=== PATIENT | female | born 1995 ===

== ENCOUNTER 2024-07-31 13:28 | Outpatient (AMB) | payer OTHER, SELFPAY ==
[2024-07-31 13:39] VITALS: BP 106/69; PULSE 96; RESP 18; TEMP 36.8; O2SAT 99; BMI 21.3
--- NOTE | 2024-07-31 13:39 | PD.RESCLINIC ---
Vital Signs 07/31/24 13:39 Height 1.68 m Height Method Stated Weight 59.874 kg Weight Measurement Method Standing Scale BMI 21.3 BP 106/69 Blood Pressure Source Automatic Cuff Blood Pressure Location Left Upper Arm Position Sitting Respiration 18 Pulse 96 Pulse Source Monitor Temp 98.2 F Temp Source Temporal Artery Scan Pulse Oximetry (%) 99 Oxygen Delivery Method Room Air Allergies/Meds Allergies & Medications Allergies No Known Allergies Allergy (Verified 07/31/24 13:40) Medication Reconciliation Lactobacillus acidophilus 10 billion cell capsule 10,000 mmu cells PO QDAY 1 month #30 caps 07/31/24 [Rx] clotrimazole 1 % topical cream 1 applic topical BID vaginal infection 2 weeks #30 grams 07/31/24 [Rx] ketoconazole 2 % shampoo 1 applic topical Q2D scalpo seborrhaeic dermatitis 1 month #120 mL 07/31/24 [Rx] pimecrolimus 1 % topical cream 1 applic topical BID Dermatitis 1 month #60 grams 08/05/24 [Rx] MA Intake Visit Data Collection New Patient or Established: New Patient (never been to [facility]) Seen by Clinical Staff ONLY (RN/MA): No Pain Present Currently: No Pain scale:: 0 Pain Scale Used: Watters-Vazquez/Numerical Green Chain Puller Required: No PCP or OBGYN visit in last 3 months: No Hx Now: No Do You Feel Safe at Home: Yes Authorities Contacted: N/A Smoking Status Smoking Status: Never smoker Immunization / Flu Flu Vaccine in the Last 12 Months: No Flu Vaccine Exclusion Criteria: No Exclusion Criteria Past Medical History Social History SMOKING STATUS: Smoking status: Never smoker Patient Portal Questionaires Social History Tobacco History Smoking Status: Never smoker Domestic Abuse History Do You Feel Safe at Home: Yes Review of Systems Report any current symptoms Only answer those that you have currently: Past Medical History Past Medical History Have you ever been diagnosed with any of the following: History of Present Illness HPI Narrative Patient is a 29 year old female with past medical history of seborrheic dermatitis since 2015. She was previously in [place] and was seen by wine steward/stewardess and prescribed topical steroids and ointments. She has otherwise remained in good health over the past 1 year until 2 weeks ago. 07/31/2024: 2 weeks ago, she started having exacerbation of her seborrheic dermatitis. Patient initially had itching and redness around her right ear, and subsequently on the left predominantly in the outer ear canal and earlobes. She also has scab-like lesions at multiple locations on her scalp between her hair, but started around the same time. She also has a burning and itvchy rash around her vaginal orifice and labia. She denies any pain, but endorses significant pruritus and erythema. She has been using topical Vaseline to help moisturize the dryness. Review of Systems Review of Systems Narrative Review of Systems: GENERAL: Denies fevers/chills, diaphoresis. HEENT: Denies headache or visual/hearing changes. Itching and redness around her right ear, and subsequently on the left predominantly in the outer ear canal and earlobes NEURO: Denies unusual weakness or difficulty speaking. CARDIO: Denies chest pain, palpitations. PULM: Denies SOB, cough, wheezing. GI: Denies abdominal pain, no N/V, no C/D. Reports having BMs URO: Denies burning/itching/pain/urinary changes. SULFUR CHLORIDE OPERATOR: Denies menstrual changes, hot flashes. MSK/EXT/SKIN: scab-like lesions at multiple locations on her scalp between her hair PSYCH: Cooperative, pleasant mood & affect. The rest of the review of systems is otherwise negative. Objective/Exam Narrative Physical exam: Constitutional Alert, oriented x3 and comfortable HEENT Vision grossly intact. Patent nares. Trachea midline. B/L ear dermatitis Respiratory Chest normal on inspection and clear to auscultation bilaterally. Cardiovascular S1 and S2 audible, RRR. No murmurs or carotid bruit. No gross JVD. Abdominal Soft and non tender to palpation in all quadrants. BS + Genitourinary Erythema and pruritic rash around vaginal orifice and labia majorqa R>L Musculoskeletal Extremities tone within normal limits. No LE edema. Neurological CN II - XII grossly intact. Extremity motor and sensation grossly intact. Skin B/L outer ear canala and lobes, scalp seborrhaeic dermatitis Psychiatric Patient has a good affect, is cooperative. Assessment & Plan Diagnosis / Problem List (1) Dermatitis seborrheica: Status: Acute Assessment & Plan: bilateral ear outer canal lesions, erythema and pruritis Plan: Pecrolimus ointment BID Solu-medrol pack x7 days (2) Seborrhea capitis: Status: Acute Assessment & Plan: scalp dandruff and seborrheic lesions Plan: Ketoconazole shampoo (3) Acute vulvovaginitis: Status: Acute Assessment & Plan: itching and burning rash around labia majora R>L Plan: clotrimazole TOP ointment Lactobacillus probiotic qD Plan Follow up in 2 weeks with PCP Nodulizer referral for Dr Muir at [facility] re: pap smear and vaginal exam Additional Assessment Internal Medicine Attending Note: Case discussed with and agree with note and management plan of Resident Physician as per Resident's Note above. Issues of concern for present visit are as follows: New patient to clinic. Past medical history of seborrheic dermatitis, over 8 years. Has used topical steroid and other topical ointment (not known what it is, prescribed another country). Examination today significant for exacerbation of seborrheic dermatitis and usual locations of scalp periauricular, earlobes. Also noting vulvovaginitis likely Maria Esther. For seborrheic dermatitis, will treat with ketoconazole and tacrolimus. We will give a short course of oral steroid to help with inflammation, but avoid topical steroids. Clotrimazole for vulvovaginitis. Onel Robledo MD Physician Billing New Patient New Patient: E/M Level 3-CPT 18491 Office Procedures [facility] Level of Care Nursing/Assessment Patient Status: Initial/New Patient Nursing Assessment/Reassessment: Medication Reconciliation, Update PMH in EMR and Vital Signs Coordination of Care: Complex Care and Chronic Disease 1-5, Consent,records obtained, informed consent, Education Simp Pt/Fam and Staff clarify orders New Patient Charge New Patient Point Assignment: [id number] New Patient Point Charge: CATALOGING ASSISTANT Level 3 ([id number])
== END 2024-07-31 14:28 | disposition home or self-care (01) ==
LOC: HODAHC 13:28
PROVIDERS: Supervising Provider Internal Medicine; Visit Provider Student in an Organized Health Care Education/Training Program
DX: L21.9 Seborrheic dermatitis, unspecified (principal); L21.0 Seborrhea capitis; N76.0 Acute vaginitis
CPT/HCPCS: 99203; G0463

== ENCOUNTER 2024-08-14 14:59 | Outpatient (AMB) | payer OTHER, SELFPAY ==
[2024-08-14 15:21] VITALS: BP 102/71; PULSE 77; RESP 16; TEMP 36.3; O2SAT 98; BMI 21.1
--- NOTE | 2024-08-14 15:21 | PD.RESCLINIC ---
Vital Signs 08/14/24 15:21 Height 1.68 m Height Method Stated Weight 59.647 kg Weight Measurement Method Standing Scale BMI 21.1 BP 102/71 Blood Pressure Source Automatic Cuff Blood Pressure Location Left Upper Arm Position Sitting Respiration 16 Pulse 77 Pulse Source Monitor Temp 97.3 F Temp Source Temporal Artery Scan Pulse Oximetry (%) 98 Oxygen Delivery Method Room Air Allergies/Meds Allergies & Medications Allergies No Known Allergies Allergy (Verified 08/14/24 15:22) Medication Reconciliation Lactobacillus acidophilus 10 billion cell capsule 10,000 mmu cells PO QDAY 1 month #30 caps 07/31/24 [Rx Confirmed 08/14/24] ketoconazole 2 % shampoo 1 applic topical Q2D scalpo seborrhaeic dermatitis 1 month #120 mL 07/31/24 [Rx Confirmed 08/14/24] pimecrolimus 1 % topical cream 1 applic topical BID Dermatitis 1 month #60 grams 08/05/24 [Rx Confirmed 08/14/24] doxycycline hyclate 100 mg capsule 100 mg PO BID 5 days #10 caps 08/14/24 [Rx] mupirocin 2 % topical ointment 1 applic topical BID paronychia 10 days #22 grams 08/14/24 [Rx] MA Intake Visit Data Collection New Patient or Established: Established Patient (seen at [facility] within 3 years) Seen by Clinical Staff ONLY (RN/ADAM): No Pain Present Currently: No Pain scale:: 0 Pain Scale Used: Watters-Vazquez/Numerical Expansion Joint Builder Required: No PCP or OBGYN visit in last 3 months: No Hx Now: No Do You Feel Safe at Home: Yes Authorities Contacted: N/A Smoking Status Smoking Status: Never smoker Immunization / Flu Flu Vaccine in the Last 12 Months: No Flu Vaccine Exclusion Criteria: No Exclusion Criteria Past Medical History Social History SMOKING STATUS: Smoking status: Never smoker Patient Portal Questionaires Social History Tobacco History Smoking Status: Never smoker Domestic Abuse History Do You Feel Safe at Home: Yes Review of Systems Report any current symptoms Only answer those that you have currently: Past Medical History Past Medical History Have you ever been diagnosed with any of the following: History of Present Illness HPI Narrative Patient is a 29 year old female with past medical history of seborrheic dermatitis since 2016. She was previously in [facility] and was seen by deck mate and prescribed topical steroids and ointments. She has otherwise remained in good health over the past 1 year until 2 weeks ago. 07/31/2024: 2 weeks ago, she started having exacerbation of her seborrheic dermatitis. Patient initially had itching and redness around her right ear, and subsequently on the left predominantly in the outer ear canal and earlobes. She also has scab-like lesions at multiple locations on her scalp between her hair, but started around the same time. She also has a burning and itvchy rash around her vaginal orifice and labia. She denies any pain, but endorses significant pruritus and erythema. She has been using topical Vaseline to help moisturize the dryness. 08/14/2024: Presented for follow up visit. Bilateral ear dermatitis has resolved with steroids and pimecrolimus. Patient endorses significant relief. She however has developed a new RT thumb nail paronychia. She had a similar episode at [facility] same location in May 2024 which drained spontaneously. This swelling and pain started 3 days ago and is progressively worsening. Unlikely to be amenable to I&D, hence advised epsom salt soaks, topical mupirocin and PO Doxycycline BID for 5 days. She is travelling in August, will return for follow up in 6 months, and will scheduled pap smear with Dr Muir at [facility] within that time frame. Review of Systems Review of Systems Narrative Review of Systems: GENERAL: Denies fevers/chills, diaphoresis. HEENT: Denies headache or visual/hearing changes. NEURO: Denies unusual weakness or difficulty speaking. CARDIO: Denies chest pain, palpitations. PULM: Denies SOB, cough, wheezing. GI: Denies abdominal pain, no N/V, no C/D. Reports having BMs URO: Denies burning/itching/pain/urinary changes. BARBER INSTRUCTOR: Denies menstrual changes, hot flashes. MSK/EXT/SKIN: LT thumb nail swelling and tenderness PSYCH: Cooperative, pleasant mood & affect. The rest of the review of systems is otherwise negative. Objective/Exam Narrative Physical exam: Constitutional Alert, oriented x3 and comfortable HEENT Vision grossly intact. Patent nares. Trachea midline. B/L ear dermatitis - resolved Respiratory Chest normal on inspection and clear to auscultation bilaterally. Cardiovascular S1 and S2 audible, RRR. No murmurs or carotid bruit. No gross JVD. Abdominal Soft and non tender to palpation in all quadrants. BS + Genitourinary Erythema and pruritic rash around vaginal orifice and labia majorqa - improving Musculoskeletal Extremities tone within normal limits. No LE edema. Neurological CN II - XII grossly intact. Extremity motor and sensation grossly intact. Skin LT Thumb nail Paronychia , recurrent Psychiatric Patient has a good affect, is cooperative. Assessment & Plan Diagnosis / Problem List (1) Dermatitis seborrheica: Status: Acute Assessment & Plan: bilateral ear outer canal lesions, erythema and pruritis Solu-medrol pack x7 days Plan: Continue Pecrolimus ointment PRN (2) Paronychia of left thumb: Status: Acute Assessment & Plan: She has developed a new RT thumb nail paronychia Had a similar episode at [facility] same location in May 2024 which drained spontaneously. This swelling and pain started 3 days ago and is progressively worsening. Plan: Unlikely to be amenable to I&D Start epsom salt soaks, topical mupirocin and PO Doxycycline BID for 5 days (3) Seborrhea capitis: Status: Acute Assessment & Plan: scalp dandruff and seborrheic lesions Plan: Ketoconazole shampoo (4) Acute vulvovaginitis: Status: Acute Assessment & Plan: itching and burning rash around labia majora R>L Plan: clotrimazole TOP ointment Lactobacillus probiotic qD Plan Follow up in 6 months. She is travelling in August, will scheduled pap smear with Dr Muir at [facility] within that time frame. Additional Assessment Internal Medicine Attending Note: Patient examined and interviewed. Case discussed with and agree with note and management plan of Resident Physician as per Resident's Note above. Issues of concern for present visit are as follows: Follow-up visit. Ear symptoms have resolved. Now with right thumbnail paronychia. Has had previously, spontaneously drained. No evidence of drainage at this time. There is slight soft tissue swelling. Patient may do Epsom salt soaks and treat with topical mupirocin. We will also cover with oral doxycycline for 5 days. Requesting referral to OB?BARBER INSTRUCTOR which we will make today. Onel Robledo MD Physician Billing Established Patient Established Patient: E/M Level 3-CPT 95986 Office Procedures [facility] Level of Care Nursing/Assessment Patient Status: Established Patient Nursing Assessment/Reassessment: Medication Reconciliation, Update PMH in EMR and Vital Signs Coordination of Care: Complex Care and Chronic Disease 1-5, Consent,records obtained, informed consent, Education Simp Pt/Fam and Staff clarify orders Established Patient Charge Established Patient Point Assignment: 85 Established Patient Point Charge: EP Level 3 (80-115)
== END 2024-08-14 15:52 | disposition home or self-care (01) ==
LOC: HODAHC 14:59
PROVIDERS: PCP Student in an Organized Health Care Education/Training Program; Referring Provider Student in an Organized Health Care Education/Training Program; Supervising Provider Student in an Organized Health Care Education/Training Program; Visit Provider Student in an Organized Health Care Education/Training Program
DX: L03.011 Cellulitis of right finger (principal); L21.9 Seborrheic dermatitis, unspecified; L21.0 Seborrhea capitis; N76.0 Acute vaginitis
CPT/HCPCS: 99213; G0463

== ENCOUNTER 2024-12-02 10:20 | Outpatient (AMB) | payer OTHER, SELFPAY ==
[2024-12-02 10:41] VITALS: BP 104/69; PULSE 96; RESP 20; TEMP 36.9; O2SAT 96; BMI 21.1
--- NOTE | 2024-12-02 10:41 | AMB.GYNCLNOT ---
Vital Signs 12/02/24 10:41 Height 1.68 m Height Method Stated Weight 59.591 kg Weight Measurement Method Standing Scale BMI 21.1 BP 104/69 Blood Pressure Source Automatic Cuff Blood Pressure Location Left Upper Arm Position Sitting Respiration 20 Pulse 96 Pulse Source Monitor Temp 98.4 F Temp Source Oral Pulse Oximetry (%) 96 Oxygen Delivery Method Room Air Allergies/Home Meds Allergies & Medications Allergies No Known Allergies Allergy (Verified 12/02/24 10:42) Medication Reconciliation No Known Home Medications 12/02/24 [History Confirmed 12/02/24] Intake Visit Data Collection New Patient or Established: Established Patient (seen at [facility] within 3 years) Reason for Visit:: ANNUAL EXAM Seen by Clinical Staff ONLY (RN/MA): No Fruit Or Nut Crops Farm Manager Required: No Do You Feel Safe at Home: Yes Authorities Contacted: N/A PCP or OBGYN visit in last 3 months: Yes Hx Now: Yes Are you currently on any form of Control: No Last menstrual period: 11/18/24 Pain Present Currently: No Pain Scale Used: Watters-Vazquez/Numerical Pain scale:: 0 Smoking Status Smoking Status: Never smoker Special Skills Officer history Special Skills Officer History Menstrual regularity: irregular Flow: normal Monthly: Yes How many days does period last: 5 Age at menarche: 13 Currently sexually active: No If not currently sexually active, have you ever been sexually active: No Questionnaires Covid-19 Vaccine Questionnaire Has patient been vacinated for Covid-19 Have you been vacinated for Covid-19: Yes PHQ-9 PHQ-2 Over the last 2 weeks, how often have you been bothered by any of the following problems? 1. Little interest or pleasure in doing things: not at all 2. Feeling down, depressed, or hopeless: not at all Total score: 0 PHQ-9 3. Trouble falling or staying asleep, or sleeping too much: Not at all 4. Feeling tired or having little energy: Not at all 5. Poor appetite or overeating: Not at all 6. Feeling bad about yourself - or that you are a failure or have let yourself or your family down: Not at all 7. Trouble concentrating on things, such as reading the newspaper or watching television: Not at all 8. Moving or speaking so slowly that other people could have noticed? - Or the opposite - being so fidgety or restless that you have been moving around a lot more than usual: not at all 9. Thoughts that you would be better off or of hurting yourself in some way: Not at all Total score: 0 Source: Developed by Drs. Shola John, Teresa Barajas, Coleman Chambers and colleagues, with an educational li from [employer]. Depression screen completed yes Social History Living Situation History Marital Status: Single Lives With: Family Housing: House Tobacco History Smoking Status: Never smoker Second Hand Smoke Exposure: No Alcohol History Alcohol Intake: Never Domestic Abuse History Do You Feel Safe at Home: Yes History of Present Illness HPI Narrative 29 yo n[place]ip/[place] for LAMINATION MACHINE OPERATOR exam. patient comes to office today with concern about history of dysmenorrhea and left ovarian cyst. Patient lives in [place]. here visiting family.menarche at 13yo. menses q month x 3-5 days. moderate flow. no clots. dysmenorrhea started with menses. She was seeing LAMINATION MACHINE OPERATOR in [facility], treated with Ugesic q month for pain relief. she reports that menstrual pain is sharp and cramping. severe 10/10. Usegic was decreasing pain until last 2 month. pain is worse, no improvement. she also takes Tylenol and Ibuprophen ( Paracetamol and Rebekah) as needed and this has not helped. History of increased breast tenderness , goes away with menses onset, hurts to walk/run, tight bra/yoga top helps. patient avoid caffiene. History of Left ovarian cyst. no existing PMH, no social habit,no surgery Review of Systems Review of Systems Systems Reviewed: All systems reviewed, normal except as documented Exam Narrative Physical exam: abdomen soft, non tender, no masses palpated. no c/o pain during exam. normal pelvic exam noted. no lesion, no unusual discharge General Limitations: no limitations General Appearance: alert, in no apparent distress, comfortable, cooperative, healthy appearing, well developed and well groomed Head Head exam: atraumatic, normocephalic and normal inspection ENT ENT exam: Present normal exam, normal oropharynx and mucous membranes moist Resp Respiratory exam: Present normal lung sounds bilaterally Card Cardiovascular exam: Present regular rate, normal rhythm and normal heart sounds Abdominal Abdominal exam: Present soft and normal bowel sounds Office Procedures OB Clinic LOC & Office Proc's Nursing/Assessment Patient Status: Established Patient OB Clinic Nursing Assessment: Medication Reconciliation, Update PMH in EMR and Vital Signs OB Clinic Coordination of Care: Complex Care and Chronic Disease 1-5, Consent,records obtained, informed consent, Education Simp Pt/Fam, Lab and Imaging orders and Staff clarify orders Miscellaneous Interventions: Pelvic no cultures Established Patient Charge Established Patient Point Assignment: 110 Established Patient Point Charge: EP Level 3 (80-115) Assessment & Plan Diagnosis / Problem List (1) Encounter for annual routine gynecological examination: Status: Acute (2) Pelvic pain in female: Status: Acute Plan schedule pelvic sono. stop Ugesic (hydrocodone). tight bra for support. avoid caffiene product. continue tylenol and ibuprophen. discussed OCP/depo to stop menses. patient refused. I also discussed cyclic provera. rtc after sono for results Additional Plan Follow Up: 2 Weeks (f/u pelvic pain)
== END 2024-12-02 11:47 | disposition home or self-care (01) ==
LOC: HODSOBC 10:20
PROVIDERS: PCP Advanced Practice Midwife; Referring Provider Advanced Practice Midwife; Supervising Provider Advanced Practice Midwife; Visit Provider Advanced Practice Midwife
DX: Z01.419 Encounter for gynecological examination (general) (routine) without abnormal findings (principal); R10.2 Pelvic and perineal pain; Z87.42 Personal history of other diseases of the female genital tract
CPT/HCPCS: 99213; G0463